=== PATIENT | male | born 1975 | race Caucasian/White ===

== ENCOUNTER 2020-10-30 18:55 | Emergency (ER) | payer MEDICAID ==
[2020-10-30] MEDS ORDERED: Haldol 5 MG IM ONE (19:51)
[2020-10-30] MEDS ORDERED: Haldol 5 MG ONE (19:58)
[2020-10-30 20:11] VITALS: BP 139/69; PULSE 92; O2SAT 98
[2020-10-30 20:17] LABS: Absolute Neutrophil Ct (ANC) 7.91 (1.4-6.9); BASOPHIL % 0.5 % (0.0-0.4); Basophil (Absolute #) 0.05 (0-0.4); Eosinophil % 0.3 % (0.00-5.0); Eosinophil (Absolute #) 0.03 (0-0.5); Hematocrit 37.7 % (42-50); Lymphocyte (Absolute #) 1.17 (1.0-4.6); Mean Cell Volume 95.2 fl (78-100); Mean Corpuscular Hemoglobin 30.3 pg (26-32); Mean Corpuscular Hgb Concent. 31.8 g/dl (32-36); Mean Platelet Volume 9.7 fl (7.5-11.0); Monocyte (Absolute #) 0.56 (0.0-1.3); Monocytes % 5.8 % (0.0-12.0); Neutrophil % 81.4 % (36.0-66.0); Platelet Count 419 K/mm3 (150-450); Red Blood Count 3.96 M/mm3 (4.1-5.6); Red Cell Distribution Width 14.9 % (11.5-14.0); White Blood Count 9.7 K/mm3 (4.0-10.5)
--- NOTE | 2020-10-30 20:18 | ERPHSYRPT ---
- History of Present Illness Time Seen by Provider: 10/30/20 20:15 Source: patient Exam Limitations: no limitations Patient Subjective Stated Complaint: pt here wanting detox for drug addiction, pt states he has been to 3 hospital that would not help them and cant get in to a rehab center, he as apt on 11/01/20. pt states he used meth,herion today and xanx,tch 2 days ago Triage Nursing Assessment: pt alert, walked in, resp easy,face mask in place, pt anxious Physician History: pt here wanting detox for drug addiction, pt states he has been to 3 hospital that would not help them and cant get in to a rehab center, he as apt on 11/01/20. pt states he used meth,herion today and xanx,THC 2 days ago Timing/Duration: today Severity of Symptoms-Max: moderate Severity of Symptoms-Current: moderate Associated Symptoms: anxiety, confused, impaired concentration, insomnia Allergies/Adverse Reactions: citalopram [From [employer] Allergy (Verified 10/30/20 19:30) Home Medications: Atorvastatin Calcium [Lipitor] 80 mg PO HS 10/30/20 [History] Clopidogrel Bisulfate 75 mg [PLAVIX 75 MG Tablet] 75 mg PO DAILY 10/30/20 [History] Hydrochlorothiazide 1 ea DAILY 10/30/20 [History] Olanzapine 5 mg [zyPREXA 5MG TABLET] 1 ea DAILY 10/30/20 [History] lisinopriL [Prinivil] 1 ea DAILY 10/30/20 [History] Hx Tetanus, Diphtheria Vaccination/Date Given: No Hx Influenza Vaccination/Date Given: No Hx Pneumococcal Vaccination/Date Given: No Immunizations Up to Date: Yes Travel Risk - International Travel Have you traveled outside of the country in past 3 weeks: No - Coronavirus Screening Are you exhibiting any of the following symptoms?: No Close contact with a COVID-19 positive Pt in past 14-21 Days: No - Past Medical History Pertinent Past Medical History: Yes Neurological History: Stroke Cardiac History: Arrhythmia - Past Surgical History Past Surgical History: Yes Cardiac: Pacemaker - Social History Smoking Status: Current every day smoker Exposure to second hand smoke: Yes Drug Use: marijuana, methamphetamines, heroin, other Patient Lives Alone: No (homeless) - Review of Systems Constitutional: No Fever, No Chills Eyes: No Symptoms Ears, Nose, & Throat: No Symptoms Respiratory: No Cough, No Dyspnea Cardiac: No Chest Pain, No Edema, No Syncope Abdominal/Gastrointestinal: No Abdominal Pain, No Nausea, No Vomiting, No Diarrhea Genitourinary Symptoms: No Dysuria Musculoskeletal: No Back Pain, No Neck Pain Skin: No Rash Neurological: No Dizziness, No Focal Weakness, No Sensory Changes Psychological: Drug Abuse Endocrine: No Symptoms All Other Systems: Reviewed and Negative - Nursing Vital Signs Nursing Vital Signs: Initial Vital Signs Temperature 97.0 F 10/30/20 19:17 Pulse Rate 87 10/30/20 19:17 Respiratory Rate 20 10/30/20 19:17 Blood Pressure 154/82 10/30/20 19:17 O2 Sat by Pulse Oximetry 99 10/30/20 19:17 Pain Scale Pain Intensity 0 - Physical Exam General Appearance: no apparent distress Eyes, Ears, Nose, Throat Exam: normal ENT inspection, moist mucous membranes Neck Exam: normal inspection, non-tender, supple Respiratory Exam: normal breath sounds, lungs clear, No respiratory distress Cardiovascular Exam: regular rate/rhythm, other (pacemaker placement), No edema Gastrointestinal/Abdominal Exam: soft, No tenderness, No distention Extremities Exam: normal inspection, normal range of motion, No evidence of injury, No edema Current Suicidality: denies suicide plan Neurological Exam: alert, toe sewer II-XII nml as tested, oriented x 3 Skin Exam: normal color, warm, dry, No rash SpO2: 98 - Course Nursing assessment & vital signs reviewed: Yes Ordered Tests: Active Orders 24 hr Category Date Time Status Clean Catch Urine Specimen STAT Care 10/30/20 19:51 Active CBC W DIFF Stat Lab 10/30/20 20:15 Completed CMP Stat Lab 10/30/20 20:15 Completed ETHYL ALCOHOL Stat Lab 10/30/20 20:15 Completed UA W/RFX UR CULTURE Stat Lab 10/30/20 19:51 Ordered Urine Triage Profile Stat Lab 10/30/20 19:51 Ordered Transfer Order Routine Transfer 10/30/20 Ordered Medication Summary Discontinued Medications Generic Name Dose Route Start Last Admin Trade Name Freq PRN Reason Stop Dose Admin Haloperidol Lactate 5 mg 10/30/20 19:51 10/30/20 19:58 Haldol 5 Mg IM 10/30/20 19:52 5 mg STAT ONE Administration Haloperidol Lactate Confirm 10/30/20 19:58 Haldol 5 Mg Administered 10/30/20 19:59 Dose 5 mg .ROUTE .STK-MED ONE Lorazepam 2 mg 10/30/20 20:54 Ativan 2 Mg/1 Ml Vial IM 10/30/20 20:55 STAT ONE Lorazepam Confirm 10/30/20 20:59 Ativan 2 Mg/1 Ml Vial Administered 10/30/20 21:00 Dose 2 mg .ROUTE .STK-MED ONE Lab/Rad Data: Laboratory Result Diagrams 10/30/20 20:15 10/30/20 20:15 Laboratory Results 10/30/20 10/30/20 Range/Units 20:15 20:15 WBC 9.7 (4.0-10.5) K/mm3 RBC 3.96 L (4.1-5.6) M/mm3 Hgb 12.0 L (12.5-18.0) gm/dl Hct 37.7 L (42-50) % MCV 95.2 (78-100) fl MCH 30.3 (26-32) pg MCHC 31.8 L (32-36) g/dl RDW 14.9 H (11.5-14.0) % Plt Count 419 (150-450) K/mm3 MPV 9.7 (7.5-11.0) fl Gran % 81.4 H (36.0-66.0) % Eos # (Auto) 0.03 (0-0.5) Absolute Lymphs (auto) 1.17 (1.0-4.6) Absolute Monos (auto) 0.56 (0.0-1.3) Lymphocytes % 12.0 L (24.0-44.0) % Monocytes % 5.8 (0.0-12.0) % Eosinophils % 0.3 (0.00-5.0) % Basophils % 0.5 (0.0-0.4) % Absolute Granulocytes 7.91 H (1.4-6.9) Basophils # 0.05 (0-0.4) Sodium 135 L (137-145) mmol/L Potassium 4.3 (3.5-5.1) mmol/L Chloride 96 L (98-107) mmol/L Carbon Dioxide 29 (22-30) mmol/L Anion Gap 13.5 (5-15) MEQ/L BUN 11 (9-20) mg/dL Creatinine 1.22 (0.66-1.25) mg/dL Estimated GFR > 60.0 ML/MIN Glucose 128 H (74-106) mg/dL Calcium 9.6 (8.4-10.2) mg/dL Total Bilirubin 0.40 (0.2-1.3) mg/dL AST 55 (17-59) U/L ALT 75 H (0-50) U/L Alkaline Phosphatase 89 (38-126) U/L Serum Total Protein 8.0 (6.3-8.2) g/dL Albumin 4.6 (3.5-5.0) g/dL Ethyl Alcohol < 10 (0-10) mg/dL - Progress Progress: unchanged Progress Note: 10/30/20 20:16 For rehab placement contacted. [facility] admission but they will admit the patient tomorrow so till then we will observe patient here and tomorrow will discharge patient to [facility]. Discussed with : Sherron Will see patient in: hospital (observation) Counseled pt/family regarding: lab results, diagnosis, need for follow-up - Departure Departure Disposition: AMA Clinical Impression: Heroin abuse, Polysubstance (excluding opioids) dependence, daily use Condition: Fair Critical Care Time: No Referrals: DOCTOR,NO FAMILY [Primary Care Provider] -
[2020-10-30 20:32] LABS: ALBUMIN 4.6 g/dL (3.5-5.0); ALKALINE PHOSPHATASE 89 U/L (38-126); ANION GAP 13.5 MEQ/L (5-15); BLOOD UREA NITROGEN 11 mg/dL (9-20); CHLORIDE 96 mmol/L (98-107); Calcium 9.6 mg/dL (8.4-10.2); Carbon Dioxide 29 mmol/L (22-30); Creatinine 1 1.22 mg/dL (0.66-1.25); EST GLOMERULAR FILTRATION RATE > 60.0 ML/MIN; ETHYL ALCOHOL < 10 mg/dL (0-10); Glucose 128 mg/dL (74-106); Potassium 4.3 mmol/L (3.5-5.1); SGOT/AST 55 U/L (17-59); SGPT/ALT 75 U/L (0-50); SODIUM 135 mmol/L (137-145)
[2020-10-30] MEDS ORDERED: Ativan 2 MG/1 ML VIAL ONE (20:59)
[2020-10-30] MEDS: Ativan 2 MG/1 ML VIAL IM ONE ×2 (21:00→21:08)
[2020-10-30 21:48] LABS: INFLUENZA A NEGATIVE (NEGATIVE); INFLUENZA B NEGATIVE (NEGATIVE); RESPIRATORY SYNCTIAL VIRUS NEGATIVE (Negative)
== END 2020-10-30 21:06 | disposition left against medical advice (07) ==
LOC: ED 18:55
DX: F19.139 Other psychoactive substance abuse with withdrawal, unspecified (principal)
CPT/HCPCS: 0241U; 36415; 80053; 80307; 85025; 96372; 99284; J1630; J2060; G0480

== ENCOUNTER 2020-10-30 21:59 | Observation (INO) | payer MEDICAID ==
--- NOTE | 2020-10-30 22:15 | ERPHSYRPT ---
- History of Present Illness Time Seen by Provider: 10/30/20 22:12 Source: patient Exam Limitations: no limitations Physician History: Patient is 45-year-old male was just seen half an hour ago in the ER. Patient signed AMA without signing paperwork went into the parking lot, as he is homeless and it was very cold out there so they called ambulance. His girlfriend was brought in by ambulance while he walked into the front door. Patient has extensive history of heroine marijuana and polysubstance abuse and for which patient has already been scheduled to be admitted at rehab tomorrow and because of patient's homelessness patient were already admitted here as obs ervation till tomorrow but they signed AGAINST MEDICAL ADVICE and then went out and then came back. Associated Symptoms: denies symptoms Allergies/Adverse Reactions: citalopram [From [employer]] Allergy (Verified 10/30/20 19:30) Home Medications: Atorvastatin Calcium [Lipitor] 80 mg PO HS 10/30/20 [History] Clopidogrel Bisulfate 75 mg [PLAVIX 75 MG Tablet] 75 mg PO DAILY 10/30/20 [History] Hydrochlorothiazide 1 ea DAILY 10/30/20 [History] Olanzapine 5 mg [zyPREXA 5MG TABLET] 1 ea DAILY 10/30/20 [History] lisinopriL [Prinivil] 1 ea DAILY 10/30/20 [History] Hx Tetanus, Diphtheria Vaccination/Date Given: No Hx Influenza Vaccination/Date Given: No Hx Pneumococcal Vaccination/Date Given: No - Past Medical History Pertinent Past Medical History: Yes Neurological History: Stroke Cardiac History: Arrhythmia - Past Surgical History Past Surgical History: Yes Cardiac: Pacemaker - Social History Smoking Status: Current every day smoker Exposure to second hand smoke: Yes Drug Use: marijuana, methamphetamines, heroin, other Patient Lives Alone: No (homeless) - Review of Systems Constitutional: No Symptoms Eyes: No Symptoms Ears, Nose, & Throat: No Symptoms Respiratory: No Symptoms Cardiac: No Symptoms Abdominal/Gastrointestinal: No Symptoms Genitourinary Symptoms: No Symptoms Musculoskeletal: No Symptoms Skin: No Symptoms - Physical Exam General Appearance: no apparent distress Eyes, Ears, Nose, Throat Exam: normal ENT inspection, moist mucous membranes Neck Exam: normal inspection, non-tender, supple Respiratory Exam: normal breath sounds, lungs clear, No respiratory distress Cardiovascular Exam: regular rate/rhythm, No edema Gastrointestinal/Abdominal Exam: soft, No tenderness, No distention Extremities Exam: normal inspection, normal range of motion, No evidence of injury, No edema Current Suicidality: denies suicide plan Neurological Exam: alert, mate relief II-XII nml as tested, oriented x 3 Skin Exam: normal color, warm, dry, No rash - Course Nursing assessment & vital signs reviewed: Yes Ordered Tests: Active Orders 24 hr Category Date Time Status UA W/RFX UR CULTURE Stat Lab 10/30/20 22:25 Ordered Urine Triage Profile Stat Lab 10/30/20 22:25 Ordered - Progress Progress: unchanged Progress Note: 10/30/20 22:34 Patient has a past medical history of TIAs and also had a pacemaker. Since putting pacemaker patient does not have any TIA symptoms anymore and patient is at this point of time medically clear Will see patient in: hospital (observation) Counseled pt/family regarding: lab results, diagnosis, need for follow-up - Departure Departure Disposition: Observation Clinical Impression: Heroin abuse, Polysubstance (excluding opioids) dependence, daily use Condition: Fair Critical Care Time: No Referrals: DOCTOR,NO FAMILY [Primary Care Provider] -
[2020-10-30 22:40] LABS: Appearance CLEAR (CLEAR); Bilirubin NEGATIVE (NEGATIVE); Blood NEGATIVE Ery/ul (0-5); Glucose NEGATIVE (NEGATIVE); Ketones NEGATIVE (NEGATIVE); Leukocyte Esterase NEGATIVE (NEGATIVE); Mucus SLIGHT /HPF (NEGATIVE); Nitrite NEGATIVE (NEGATIVE); Protein,Urine Dip NEGATIVE (Negative); Specific Gravity 1.009 (1.005-1.025); Urobilinogen NEGATIVE mg/dL (0-1); WBC 0-2 /HPF (0-5)
[2020-10-30 22:41] LABS: Bacteria NONE SEEN /HPF (NEGATIVE)
[2020-10-30 22:51] LABS: Barbiturate,Urine NEGATIVE (NEGATIVE); Benzodiazepine,Urine NEGATIVE (NEGATIVE); Cocaine,Urine NEGATIVE (NEGATIVE); Methadone,Urine NEGATIVE (NEGATIVE); Opiate,Urine NEGATIVE (NEGATIVE); PCP,Urine NEGATIVE (NEGATIVE); THC,Urine POSITIVE (NEGATIVE)
[2020-10-30 23:23] LABS: Amphetamine,Urine POSITIVE (NEGATIVE)
[2020-10-30] MEDS ORDERED: Haldol 5 MG IM PRN (23:23)
[2020-10-30] MEDS ORDERED: Ativan 2 MG/1 ML VIAL IM PRN (23:23)
[2020-10-31 07:19] VITALS: O2SAT 94
[2020-10-31 12:56] VITALS: BP 112/50; PULSE 64
--- NOTE | 2020-11-19 12:38 | PCM.SSS ---
History of Present Illness - Chief Complaint Chief Complaint: drug abuse, withdrawal Date: 10/31/20 History of Present Illness: is a 45 year old male. Pt. presented to ER desiring inpatient treatment for ongoing drug abuse, pt. notes he has an accepting facility for Sunday but wanted to go sooner, therefore he and his girlfriend have been visiting several ER rooms the past 24 hours. - Review of Systems Constitutional: Malaise Eyes: No Symptoms Ears, Nose, & Throat: No Symptoms Respiratory: No Cough, No Short Of Breath Cardiac: No Chest Pain, No Edema, No Syncope Abdominal/Gastrointestinal: No Abdominal Pain, No Nausea, No Vomiting, No Diarrhea Genitourinary Symptoms: No Dysuria Musculoskeletal: No Back Pain, No Neck Pain Skin: No Rash Neurological: No Dizziness, No Focal Weakness, No Sensory Changes Psychological: No Symptoms Endocrine: No Symptoms Hematologic/Lymphatic: No Symptoms Immunological/Allergic: No Symptoms Medications & Allergies Home Medications: Home Medication List Atorvastatin Calcium [Lipitor] 80 mg PO HS 10/30/20 [History Confirmed 10/31/20] Clopidogrel Bisulfate 75 mg [PLAVIX 75 MG Tablet] 75 mg PO DAILY 10/30/20 [History Confirmed 10/31/20] Hydrochlorothiazide 25 mg PO DAILY 10/30/20 [History Confirmed 10/31/20] Olanzapine 5 mg [zyPREXA 5MG TABLET] 5 mg PO BID 10/30/20 [History Confirmed 10/31/20] lisinopriL [Prinivil] 10 mg PO DAILY 10/30/20 [History Confirmed 10/31/20] Allergies/Adverse Reactions: Allergies Allergy/AdvReac Type Severity Reaction Status Date / Time citalopram [From Celexa] Allergy Verified 10/31/20 00:22 - Past Medical History Past Medical History: Yes Neurological History: TIA ENT History: No Pertinent History Cardiac History: Arrhythmia Respiratory History: No Pertinent History Endocrine Medical History: No Pertinent History Musculoskelatal History: No Pertinent History GI Medical History: No Pertinent History History: No Pertinent History Pyscho-Social History: Anxiety, Depression Male Reproductive Disorders: No Pertinent History - Past Surgical History Past Surgical History: Yes Neuro Surgical History: No Pertinent History Cardiac History: Pacemaker Respiratory Surgery: No Pertinent History GI Surgical History: No Pertinent History Genitourinary Surgical Hx: No Pertinent History Musculskeletal Surgical Hx: No Pertinent History Male Surgical History: No Pertinent History - Social History Smoking Status: Current every day smoker How long have you smoked: 26 years Exposure to second hand smoke: Yes Alcohol: None Drug Use: marijuana, methamphetamines, cocaine, heroin - Physical Exam General Appearance: no apparent distress, alert Neurologic Exam: alert, oriented x 3, cooperative, normal mood/affect, nml c erebellar function, nml station & gait, sensation nml, No motor deficits Eye Exam: PERRL/EOMI, eyes nml inspection Ears, Nose, Throat Exam: normal ENT inspection, TMs normal, pharynx normal, moist mucous membranes Neck Exam: normal inspection, non-tender, supple, full range of motion Respiratory Exam: normal breath sounds, lungs clear, No respiratory distress Cardiovascular Exam: regular rate/rhythm, normal heart sounds, normal peripheral pulses Gastrointestinal/Abdomen Exam: soft, normal bowel sounds, No tenderness, No mass Back Exam: normal inspection, normal range of motion, No CVA tenderness, No vertebral tenderness Extremity Exam: normal inspection, normal range of motion, pelvis stable Skin Exam: normal color, warm, dry, No rash Lymphatic Exam: No adenopathy Assessment/Plan (1) Heroin abuse Status: Acute Code(s): F11.10 - OPIOID ABUSE, UNCOMPLICATED (2) Polysubstance (excluding opioids) dependence, daily use Status: Acute Code(s): F19.20 - OTHER PSYCHOACTIVE SUBSTANCE DEPENDENCE, UNCOMPLICATED Hospital Summary - Hospital Course Hospital Course: Pt. admitted to the hospital and inpatient drug treatment was secured for the patient but he refused to go because he wanted his girlfriend to be at the same facility and he had a facility accepting them together in 2 days, therefore pt. requested release from the hospital refusing to go to accepting drug treatment facility - Vitals & Intake/Output Vital Signs: Vital Signs Temperature 98.4 F 10/31/20 04:00 Pulse Rate 64 10/31/20 12:00 Respiratory Rate 14 10/31/20 12:00 Blood Pressure 112/50 10/31/20 12:00 O2 Sat by Pulse Oximetry 94 L 10/31/20 12:00 - Discharge Discharge Date: 10/31/20 Disposition: Home, Self-Care Condition: Good Prescriptions: Continue lisinopriL [Prinivil] 10 mg PO DAILY Olanzapine 5 mg [zyPREXA 5MG TABLET] 5 mg PO BID Hydrochlorothiazide 25 mg PO DAILY Clopidogrel Bisulfate 75 mg [PLAVIX 75 MG Tablet] 75 mg PO DAILY Atorvastatin Calcium [Lipitor] 80 mg PO HS Instructions: Drug Abuse and Drug Addiction (DC) Additional Instructions: FOLLOW UP WITH PRE-ARRANGED DRUG TREATMENT CENTER
== END 2020-10-31 12:55 | disposition home or self-care (01) ==
LOC: ED 21:59 → ICU 22:39
PROVIDERS: ADMIT Family Medicine; ATTEND Family Medicine
DX: F11.10 Opioid abuse, uncomplicated (principal); F19.20 Other psychoactive substance dependence, uncomplicated; Z86.73 Personal history of transient ischemic attack (TIA), and cerebral infarction without residual deficits; Z95.0 Presence of cardiac pacemaker; Z59.0 Homelessness; Z79.899 Other long term (current) drug therapy; Z79.01 Long term (current) use of anticoagulants
CPT/HCPCS: 80307; 81001; 93268; 99284; G0378